=== PATIENT | female | born 1995 | race Caucasian/White ===

== ENCOUNTER 2017-05-02 14:10 | Emergency (ER) | payer SELFPAY ==
[~2017-05-02] VITALS: Ht 170.2 cm; Wt 107.6 kg
[~2017-05-02 14:10] MED LIST: BACTRIM,SEPT1 TABLET PO; BENTYL10 MG PO; CLINDAMYCIN HC300 MG PO; KEFLEX500 MG PO; METFORMIN HCL500 MG PO; MOTRIN600 MG PO; NAPROSYN500 MG PO; NOHOMEMEDS; PENICILLIN V P500 MG PO; TYLENOL WITH C1 EACH PO
[2017-05-02 16:10] VITALS: BP 99/69
== END 2017-05-02 15:51 | disposition home or self-care (01) ==
LOC: RME 14:10 → EME 14:10 → RME 15:51
DX: D17.1 Benign lipomatous neoplasm of skin and subcutaneous tissue of trunk (principal)
CPT/HCPCS: 99281; 99282